=== PATIENT | male | born 1945 ===

== ENCOUNTER 2017-12-03 05:05 | Inpatient (IN) | payer MEDICARE, OTHER ==
[2017-12-03] VITALS (8 sets, daily range): BP systolic 118–201; BP diastolic 64–96; PULSE 48–65; TEMP 97.6–98.5
[~2017-12-03] VITALS: Ht 170.2 cm; Wt 75.6 kg
[2017-12-04] VITALS (7 sets, daily range): BP systolic 118–143; BP diastolic 48–76; PULSE 55–66; TEMP 97.4–98.2
[2017-12-05 03:46] VITALS: BP 157/80; PULSE 58; TEMP 97.8
[2017-12-05 06:59] VITALS: BP 142/83; PULSE 65; TEMP 97.8
[2017-12-05 10:50] VITALS: BP 146/70; PULSE 52; TEMP 97.6
[2017-12-05] MEDS ORDERED: NORCO 325 MG-51 TAB PO (13:12)
[2017-12-05] MEDS ORDERED: SENOKOT S 50 MG1 TAB PO (13:13)
[2017-12-05] MEDS ORDERED: PYRIDIUM 100MG100 MG PO (13:14)
== END 2017-12-05 15:10 | disposition home or self-care (01) | DRG 670 ==
LOC: SDCO 05:05 → SURG 12:26 → SDCO 12-04 07:23 → SURG 12-04 07:24
PROVIDERS: Urology
PROC: 3E0K805 Introduction of Other Antineoplastic into Genitourinary Tract, Via Natural or Artificial Opening Endoscopic (ICD-10-PCS; 2017-12-03)
PROC: 0TBB8ZZ Excision of Bladder, Via Natural or Artificial Opening Endoscopic (ICD-10-PCS; principal; 2017-12-03 07:30)
DX: C67.4 Malignant neoplasm of posterior wall of bladder (principal); Z87.891 Personal history of nicotine dependence
CPT/HCPCS: OP; G0378; J0690; J1100; J1170; J1885; J2405; J2704; J2765; J3010; J7120; J9280